=== PATIENT | male | born 1965 | race Caucasian/White ===

== ENCOUNTER 2018-08-03 11:50 | Emergency (ER) | payer OTHER ==
[~2018-08-03] VITALS: Ht 182.9 cm; Wt 127.0 kg
[~2018-08-03 11:50] MED LIST: ACET500 PO; ALBU4; ALBU90OI6 INH; ATOR80 PO; Advil200 M1 PO; CYCL10; CYCL10 PO; EPIN.3I IM; Flomax0.4 MG PO; GABA300 PO; GABA600; GLIP2.5ER; GLIP5 PO; HYDACE5 PO; HYDR1TAB94 PO; INVOKANA100 MG; INVOKANA100 MG PO; INVOKANA300 MG PO; Keflex500 MG PO; LISHYD1012 PO; LISI5 PO; Lisinopril2.5 MG; MELO7.5 PO; METF500; METF500 PO; METFORMIN HCL1000 MG PO; NASAL DECONGEST30 MG PO; Norco 5-325 Ta1 EACH PO; OMEP20ER PO; OXYACE5T PO; Omeprazole20 M1; Omeprazole20 M1 PO; Prednisone20 MG PO; Robaxin-750750 MG PO; Robaxin500 MG PO; SIMV40 PO; SIMV5; TAMS.4ER; TAMS.4ER PO
== END 2018-08-03 12:46 | disposition home or self-care (01) ==
LOC: ER 11:50
DX: S63.601A Unspecified sprain of right thumb, initial encounter (principal); W19.XXXA Unspecified fall, initial encounter; Z88.8 Allergy status to other drugs, medicaments and biological substances; Z79.899 Other long term (current) drug therapy; Z79.84 Long term (current) use of oral hypoglycemic drugs; E11.9 Type 2 diabetes mellitus without complications; J45.909 Unspecified asthma, uncomplicated; I10 Essential (primary) hypertension
CPT/HCPCS: 73140; 99283-25

== ENCOUNTER 2018-08-06 09:29 | Emergency (ER) | payer OTHER ==
[~2018-08-06] VITALS: Ht 182.9 cm; Wt 127.0 kg
[2018-08-06] MEDS ORDERED: Prednisone20 MG PO (10:40)
[2018-08-06] MEDS ORDERED: Robaxin500 MG PO (10:40)
== END 2018-08-06 10:49 | disposition home or self-care (01) ==
LOC: ER 09:29
DX: M54.5 Low back pain (principal); Z88.8 Allergy status to other drugs, medicaments and biological substances; Z79.899 Other long term (current) drug therapy; Z79.84 Long term (current) use of oral hypoglycemic drugs; E11.9 Type 2 diabetes mellitus without complications; I10 Essential (primary) hypertension; J45.909 Unspecified asthma, uncomplicated
CPT/HCPCS: 96372; 99283-25; J1885

== ENCOUNTER 2019-02-14 11:08 | Emergency (ER) | payer OTHER ==
[~2019-02-14] VITALS: Ht 175.3 cm; Wt 122.5 kg
[2019-02-14] MEDS ORDERED: HYDR1TAB94 PO (11:54)
[2019-02-14] MEDS ORDERED: PRED10 PO (11:54)
[2019-02-14] MEDS ORDERED: Robaxin-750750 MG PO (11:54)
== END 2019-02-14 12:10 | disposition home or self-care (01) ==
LOC: ER 11:08
DX: M54.5 Low back pain (principal); E11.9 Type 2 diabetes mellitus without complications; J45.909 Unspecified asthma, uncomplicated; Z88.6 Allergy status to analgesic agent; Z79.84 Long term (current) use of oral hypoglycemic drugs; Z79.899 Other long term (current) drug therapy
CPT/HCPCS: 96372; 99283-25; J1885

== ENCOUNTER 2019-08-29 09:43 | Emergency (ER) | payer OTHER ==
[~2019-08-29] VITALS: Ht 182.9 cm; Wt 117.9 kg
[~2019-08-29 09:43] MED LIST changes: +PRED10 PO
[2019-08-29] MEDS ORDERED: ALBU90OI INH (11:14)
[2019-08-29] MEDS ORDERED: GLIP10 PO (11:14)
[2019-08-29] MEDS ORDERED: Zithromax250 MG PO (11:49)
== END 2019-08-29 12:12 | disposition home or self-care (01) ==
LOC: ER 09:43
DX: J06.9 Acute upper respiratory infection, unspecified (principal); H66.91 Otitis media, unspecified, right ear; I10 Essential (primary) hypertension; E11.9 Type 2 diabetes mellitus without complications; J45.909 Unspecified asthma, uncomplicated; Z79.899 Other long term (current) drug therapy; Z79.51 Long term (current) use of inhaled steroids; Z79.84 Long term (current) use of oral hypoglycemic drugs
CPT/HCPCS: 82947; 99283

== ENCOUNTER 2020-08-24 08:55 | Emergency (ER) | payer OTHER ==
[~2020-08-24] VITALS: Ht 182.9 cm; Wt 122.5 kg
[~2020-08-24 08:55] MED LIST changes: +ALBU90OI INH; +GLIP10 PO; +Zithromax250 MG PO
[2020-08-24] MEDS ORDERED: CEPH500 PO (11:38)
== END 2020-08-24 11:48 | disposition home or self-care (01) ==
LOC: ER 08:55
DX: L02.213 Cutaneous abscess of chest wall (principal); Z79.84 Long term (current) use of oral hypoglycemic drugs; Z79.899 Other long term (current) drug therapy
CPT/HCPCS: 99282-25

== ENCOUNTER → 2022-01-28 | Outpatient (CLI) | payer OTHER ==
[~2022-01-28] MED LIST changes: +CEPH500 PO
[2022-01-28 19:56] LABS: BASOPHILS PERCENT AUTO 1 % (0-2); EOSINOPHILS ABSOLUTE AUTO 0.36 K/mm3 (0.00-0.68); EOSINOPHILS PERCENT AUTO 4 % (0-6); Hematocrit 42.9 % (37.0-53.0); IMMATURE GRAN ABSOLUTE AUTO 0.08 K/mm3 (0.00-0.10); IMMATURE GRAN PERCENT AUTO 1 % (0-1); LYMPHOCYTES ABSOLUTE AUTO 2.83 K/mm3 (0.84-5.20); LYMPHOCYTES PERCENT AUTO 33 % (21-46); MONOCYTES ABSOLUTE AUTO 0.57 K/mm3 (0.16-1.47); MONOCYTES PERCENT AUTO 7 % (4-13); Mean Corpuscular HGB 29.1 pg (26.0-34.0); Mean Corpuscular HGB Conc 32.6 g/dL (31.5-36.5); Mean Corpuscular Volume 89 fL (80-100); Mean Platelet Volume 10.5 fL (9.1-12.4); NEUTROPHILS ABSOLUTE AUTO 4.78 K/mm3 (1.96-9.15); NEUTROPHILS PERCENT AUTO 55 % (41-73); Platelet Count 393 K/mm3 (150-400); RDW Coefficient Variation 12.9 % (11.7-14.2); RDW Standard Deviation 42.6 fL (35.1-46.3); Red Blood Cell Count 4.81 M/mm3 (4.30-5.90); White Blood Cell Count 8.72 K/mm3 (4.00-11.30)
[2022-01-28 21:48] LABS: Albumin/Globulin Ratio 1.3 (0.8-1.8); Bilirubin, Total 0.3 mg/dL (0.1-1.0); Bun/Creatinine Ratio 20.4 (12.0-20.0); Calcium, Blood 9.5 mg/dL (8.5-10.1); Creatinine, Blood 0.59 mg/dL (0.60-1.20); Potassium, Blood 4.1 mmol/L (3.5-5.5)
== END | disposition home or self-care (01) ==
LOC: LAB SHORT 19:21 → LAB 19:21
PROVIDERS: Family Medicine
DX: Z51.81 Encounter for therapeutic drug level monitoring (principal); Z79.899 Other long term (current) drug therapy
CPT/HCPCS: 80053; 85025

== ENCOUNTER 2022-05-05 13:14 | Day surgery (SDC) | payer OTHER ==
[~2022-05-05] VITALS: Ht 182.9 cm; Wt 119.5 kg
--- NOTE | 2022-05-05 14:29 | NUR ---
05/05/22 1429 Jackie Espinosa THREE ATTEMPTS AT IV. FIRST ATTEMPT AT IV BY MA IN RIGHT HAND MISSED. SECOND ATTEMPT IN RIGHT AC BY MA MISSED. THIRD ATTEMPT AT IV BY MA IN RIGHT HAND SUCCESSFUL.
== END 2022-05-05 15:25 | disposition home or self-care (01) ==
LOC: ORSCSDS 13:14
PROVIDERS: Surgery
PROC: 0DBN8ZX Excision of Sigmoid Colon, Via Natural or Artificial Opening Endoscopic, Diagnostic (ICD-10-PCS; principal; 2022-05-05 15:30)
DX: Z12.11 Encounter for screening for malignant neoplasm of colon (principal); Z86.010 Personal history of colon polyps; E11.9 Type 2 diabetes mellitus without complications; K21.9 Gastro-esophageal reflux disease without esophagitis; J45.909 Unspecified asthma, uncomplicated; I10 Essential (primary) hypertension; E78.5 Hyperlipidemia, unspecified; E66.9 Obesity, unspecified; Z68.36 Body mass index [BMI] 36.0-36.9, adult; Z79.84 Long term (current) use of oral hypoglycemic drugs; Z79.899 Other long term (current) drug therapy
CPT/HCPCS: 82947; 88305; J0330; J0461; J2405; J2704; J7120

== ENCOUNTER → 2024-04-12 | Outpatient (CLI) | payer OTHER ==
[2024-04-12 19:12] LABS: BASOPHILS PERCENT AUTO 1 % (0-2); EOSINOPHILS ABSOLUTE AUTO 0.31 K/mm3 (0.00-0.68); EOSINOPHILS PERCENT AUTO 4 % (0-6); Hematocrit 44.9 % (37.0-53.0); Hemoglobin 14.5 g/dL (13.5-17.5); IMMATURE GRAN ABSOLUTE AUTO 0.03 K/mm3 (0.00-0.10); IMMATURE GRAN PERCENT AUTO 0 % (0-1); LYMPHOCYTES ABSOLUTE AUTO 3.15 K/mm3 (0.84-5.20); LYMPHOCYTES PERCENT AUTO 36 % (21-46); MONOCYTES ABSOLUTE AUTO 0.67 K/mm3 (0.16-1.47); MONOCYTES PERCENT AUTO 8 % (4-13); Mean Corpuscular HGB 28.8 pg (26.0-34.0); Mean Corpuscular HGB Conc 32.3 g/dL (31.5-36.5); Mean Corpuscular Volume 89 fL (80-100); Mean Platelet Volume 9.7 fL (9.1-12.4); NEUTROPHILS ABSOLUTE AUTO 4.58 K/mm3 (1.96-9.15); NEUTROPHILS PERCENT AUTO 52 % (41-73); Platelet Count 448 K/mm3 (150-400); RDW Coefficient Variation 13.2 % (11.7-14.2); RDW Standard Deviation 43.7 fL (35.1-46.3); Red Blood Cell Count 5.03 M/mm3 (4.30-5.90); White Blood Cell Count 8.84 K/mm3 (4.00-11.30)
[2024-04-12 19:40] LABS: Alanine Aminotransfer (ALT/SGP 30 U/L (12-78); Albumin/Globulin Ratio 1.1 (0.8-1.8); Alk Phos 67 U/L (50-136); Anion Gap 9 mmol/L (3-11); Aspartate Aminotrans (AST/SGOT 22 U/L (12-37); Bilirubin, Total 0.6 mg/dL (0.1-1.0); Blood Urea Nitrogen 9 mg/dL (8-24); Bun/Creatinine Ratio 13.8 (12.0-20.0); CO2, Blood 29 mmol/L (21-32); Calcium, Blood 9.3 mg/dL (8.5-10.1); Chloride, Blood 102 mmol/L (98-108); Cholesterol 122 mg/dL (50-200); Creatinine, Blood 0.65 mg/dL (0.60-1.20); Globulin, Blood 3.8 g/dL (2.2-4.0); Glomerular Filtration Rate 109 (60-); Glucose, Blood 121 mg/dL (70-99); HDL Cholesterol 60 mg/dL (>39); LDL/HDL RATIO 0.7; Low Density Lipoprotein Chol 43 mg/dL (0-110); PSA, %Free 18.4 %; Potassium, Blood 4.5 mmol/L (3.5-5.5); Sodium, Blood 135 mmol/L (136-145); Total Protein, Blood 7.8 g/dL (6.4-8.2); Triglycerides 93 mg/dL (30-160); Very Low Density Lipoprot Chol 18 mg/dL (6-32)
[2024-04-12 19:52] LABS: Microalb/Creat Ratio UR, Rand Unable to Calculate mg/g (0.000-30.000); Microalbumin, Random Urine <5.000 mg/L (0.000-20.000)
== END ==
LOC: LAB 18:23 → LAB SHORT 18:23
PROVIDERS: Family Medicine
DX: E11.40 Type 2 diabetes mellitus with diabetic neuropathy, unspecified (principal); E78.5 Hyperlipidemia, unspecified; I10 Essential (primary) hypertension; R97.20 Elevated prostate specific antigen [PSA]
CPT/HCPCS: 80053; 80061; 82043; 82570; 84153; 84154; 85025

== ENCOUNTER → 2025-01-14 | Outpatient (CLI) | payer SELFPAY ==
[2025-01-14 19:31] LABS: BASOPHILS ABSOLUTE AUTO 0.09 K/mm3 (0.00-0.23); BASOPHILS PERCENT AUTO 1 % (0-2); EOSINOPHILS ABSOLUTE AUTO 0.05 K/mm3 (0.00-0.68); EOSINOPHILS PERCENT AUTO 0 % (0-6); Hematocrit 45.0 % (37.0-53.0); Hemoglobin 14.9 g/dL (13.5-17.5); IMMATURE GRAN ABSOLUTE AUTO 0.05 K/mm3 (0.00-0.10); IMMATURE GRAN PERCENT AUTO 0 % (0-1); LYMPHOCYTES ABSOLUTE AUTO 1.98 K/mm3 (0.84-5.20); LYMPHOCYTES PERCENT AUTO 14 % (21-46); MONOCYTES ABSOLUTE AUTO 0.70 K/mm3 (0.16-1.47); MONOCYTES PERCENT AUTO 5 % (4-13); Mean Corpuscular HGB Conc 33.1 g/dL (31.5-36.5); Mean Corpuscular Volume 88 fL (80-100); NEUTROPHILS ABSOLUTE AUTO 10.96 K/mm3 (1.96-9.15); NEUTROPHILS PERCENT AUTO 79 % (41-73); NRBC ABSOLUTE 0.00 K/mm3 (0.00-0.02); NRBC Auto 0.0 /100 WBC (0.0-0.2); Platelet Count 482 K/mm3 (150-400); RDW Coefficient Variation 13.2 % (11.7-14.2); RDW Standard Deviation 42.8 fL (35.1-46.3)
[2025-01-14 19:52] LABS: PSA, %Free 17.7 %; PSA, Free 1.040 ng/mL; Prostate Specific Antigen 5.880 ng/mL (0.000-4.000)
== END | disposition home or self-care (01) ==
LOC: LAB SHORT 18:28 → LAB 18:28
PROVIDERS: Nurse Practitioner Family
DX: I10 Essential (primary) hypertension (principal); E11.40 Type 2 diabetes mellitus with diabetic neuropathy, unspecified; R97.20 Elevated prostate specific antigen [PSA]
CPT/HCPCS: 83036; 83880; 84153; 84154; 85025

== ENCOUNTER → 2025-03-26 | Outpatient (CLI) | payer SELFPAY ==
[2025-03-26 15:05] LABS: Alanine Aminotransfer (ALT/SGP 31.0 U/L (12-78); Albumin, Blood 3.5 g/dL (3.4-5.0); Albumin/Globulin Ratio 1.1 (0.8-1.8); Anion Gap 9.0 mmol/L (3-11); Aspartate Aminotrans (AST/SGOT 23.0 U/L (12-37); Bilirubin, Total 0.3 mg/dL (0.1-1.0); Blood Urea Nitrogen 12.0 mg/dL (8-24); CO2, Blood 25.0 mmol/L (21-32); Calcium, Blood 9.2 mg/dL (8.5-10.1); Chloride, Blood 106.0 mmol/L (98-108); Creatinine, Blood 0.57 mg/dL (0.60-1.20); Ferritin, Serum 189.0 ng/mL (26-388); Globulin, Blood 3.1 g/dL (2.2-4.0); Glucose, Blood 87.0 mg/dL (70-99); Phosphorus, Blood 3.5 mg/dL (2.5-4.9); Potassium, Blood 4.1 mmol/L (3.5-5.5); Sodium, Blood 136.0 mmol/L (136-145); Total Iron Binding Capacity 267.0 ug/dL (250-450); Total Protein, Blood 6.6 g/dL (6.4-8.2)
== END ==
LOC: LAB SHORT 13:12 → LAB 13:12
PROVIDERS: Internal Medicine Hematology & Oncology
DX: D47.3 Essential (hemorrhagic) thrombocythemia (principal); R06.00 Dyspnea, unspecified
CPT/HCPCS: 80053; 82728; 83540; 83550; 84100